=== PATIENT | male | born 1965 | race Hispanic/Latino ===

== ENCOUNTER → 2018-01-17 | Outpatient (CLI) | payer OTHER ==
[~2018-01-17] VITALS: Ht 17.8 cm; Wt 131.8 kg
[~2018-01-17] MED LIST: IBUP-2077 PO; LOSA50TA37 PO; PRAV40TA3 PO
== END | disposition home or self-care (01) ==
LOC: DTH 09:35
PROVIDERS: ATTEND Surgery
DX: I10 Essential (primary) hypertension (principal); E78.5 Hyperlipidemia, unspecified; E66.01 Morbid (severe) obesity due to excess calories
CPT/HCPCS: 97802

== ENCOUNTER → 2018-02-21 | Outpatient (CLI) | payer OTHER | END | disposition home or self-care (01) | LOC: DTH 10:13 | PROVIDERS: ATTEND Surgery | DX: I10 Essential (primary) hypertension (principal); E66.01 Morbid (severe) obesity due to excess calories; E78.5 Hyperlipidemia, unspecified | CPT/HCPCS: 97803 ==

== ENCOUNTER → 2018-03-23 | Outpatient (CLI) | payer OTHER | END | disposition home or self-care (01) | LOC: DTH 09:24 | PROVIDERS: ATTEND Surgery | DX: I10 Essential (primary) hypertension (principal); E66.01 Morbid (severe) obesity due to excess calories; E78.5 Hyperlipidemia, unspecified; R63.4 Abnormal weight loss | CPT/HCPCS: 97803 ==

== ENCOUNTER → 2018-04-24 | Outpatient (CLI) | payer OTHER | END | disposition home or self-care (01) | LOC: DTH 11:57 | PROVIDERS: ATTEND Surgery | DX: I10 Essential (primary) hypertension (principal); E66.01 Morbid (severe) obesity due to excess calories | CPT/HCPCS: 97803 ==

== ENCOUNTER → 2018-08-09 | Outpatient (CLI) | payer OTHER ==
[~2018-08-09] MED LIST changes: +LOSA50TA25 PO; -LOSA50TA37 PO
== END | disposition home or self-care (01) ==
LOC: SLP 20:26
PROVIDERS: ATTEND Internal Medicine
DX: E66.2 Morbid (severe) obesity with alveolar hypoventilation (principal); I10 Essential (primary) hypertension
CPT/HCPCS: 95810

== ENCOUNTER → 2018-08-15 | Outpatient (CLI) | payer OTHER | END | disposition home or self-care (01) | LOC: SLP 20:35 | PROVIDERS: ATTEND Internal Medicine | DX: E66.2 Morbid (severe) obesity with alveolar hypoventilation (principal) | CPT/HCPCS: 95811 ==

== ENCOUNTER 2018-10-30 22:27 | Emergency (ER) | payer OTHER ==
[2018-10-30] MEDS ORDERED: SODIUM CHLORIDE 0.9% 1000ML 1,000 ML IV ONE (23:27)
[2018-10-30] MEDS ORDERED: DEXAMETHASONE SOD PHOSPHATE 10MG/ML 1ML VIAL ONE (23:27)
[2018-10-30] MEDS ORDERED: ORPHENADRINE CITRATE 30 MG/ML ML ONE (23:28)
[2018-10-30] MEDS ORDERED: KETOROLAC TROMETHAMINE 30MG/ML ONE (23:28)
[2018-10-31] MEDS ORDERED: ONDANSETRON HCL 4 MG/2 ML VIAL ONE (00:35)
[2018-10-31] MEDS ORDERED: HYDROMORPHONE 1 MG/1 ML AMP ONE (00:35)
== END 2018-10-31 01:37 | disposition home or self-care (01) ==
LOC: EDH 22:27
DX: M54.5 Low back pain (principal); I10 Essential (primary) hypertension; E78.5 Hyperlipidemia, unspecified; Z90.89 Acquired absence of other organs
CPT/HCPCS: 96374; 96375; 99283; J1100; J1170; J1885; J2360; J2405; J7030

== ENCOUNTER → 2019-03-07 | Outpatient (CLI) | payer OTHER ==
[~2019-03-07] MED LIST changes: -LOSA50TA25 PO; +LOSA50TA64 PO
--- NOTE | 2019-03-07 14:43 | NUR ---
Pre-op diet education: Provided Patient with printed materials on Nutrition Guidelines for Bariatric Surgery. Reviewed Pre-op and post-op dietary recommendations. Patient with questions. RD answered patient questions and concerns. Pt with no nutritional questions. Pt encouraged to call RD for any nutritional questions or concerns he may have. Addendum: 03/07/19 at [email or web address] RD Amended: Links added.
== END | disposition home or self-care (01) ==
LOC: DTH 10:23
PROVIDERS: ATTEND Surgery
DX: E66.01 Morbid (severe) obesity due to excess calories (principal); I10 Essential (primary) hypertension
CPT/HCPCS: 97803